=== PATIENT | female | born 1990 | race Caucasian/White ===

== ENCOUNTER 2024-12-03 23:32 | Inpatient (IN) ==
[2024-12-04] MEDS ORDERED: OXYTOCIN 30 UNITS/NSS 30 UNITS/500 ML BAG IV PRN ×2 (00:14→13:32)
[2024-12-04] MEDS ORDERED: LIDOCAINE 1% LOCAL 20 ML VIAL INFIL PRN (00:14)
[2024-12-04] MEDS: LACTATED RINGER'S 1,000 ML IV PRN (00:42)
[2024-12-04 00:44] LABS: Hematocrit (blood only) 35.4 % (37.0-47.0); Hemoglobin 12.1 g/dl (12.0-16.0); Mean Corpuscular Hemoglobin 29.8 pg (25.0-34.0); Mean Corpuscular Hgb Conc 34.2 g/dL (32.0-36.0); Mean Corpuscular Volume 87.2 fL (80.0-100.0); Mean Platelet Volume 10.3 fL (9.4-12.4); Platelet Count 251 K/uL (130-400); RDW Coefficient of Variation 13.2 % (11.5-14.5); RDW Standard Deviation 40.8 fL (36.4-46.3); Red Blood Count 4.06 M/uL (4.20-5.40); White Blood Count 12.64 K/ul (4.8-10.8)
[2024-12-04] MEDS ORDERED: ONDANSETRON INJ 2 MG/ML 2 ML VIAL IV PRN (00:56)
[2024-12-04] MEDS ORDERED: NALBUPHINE HCL INJ 10 MG/ML AMP IV PRN (00:56)
[2024-12-04] MEDS ORDERED: fentaNYL citrate PF 100 MCG/2 ML VIAL EPI PRN (00:56)
[2024-12-04] MEDS ORDERED: ROPIVACAINE 0.5% PF 5 MG/ML 20 ML VIAL EPI PRN (00:56)
[2024-12-04] MEDS ORDERED: ePHEDrine sulfate 50 MG/ML AMP IV PRN (00:56)
[2024-12-04] MEDS ORDERED: NALOXONE HCL 0.4 MG/1 ML VIAL/CARP IV PRN (00:56)
[2024-12-04] MEDS ORDERED: LIDOCAINE 2% MPF LOCAL 5 ML VIAL EPI PRN (00:56)
[2024-12-04] MEDS ORDERED: BUPIVACAINE 0.25% PF 30 ML VIAL EPI PRN (00:56)
[2024-12-04] MEDS ORDERED: SODIUM CHLORIDE 0.9% PF INJ 10 ML VIAL EPI PRN (00:56)
[2024-12-04] MEDS ORDERED: NALOXONE HCL 1 MG in SODIUM CHLORIDE 0.9% 1,000 ML IV PRN (00:56)
--- NOTE | 2024-12-04 01:06 | Anesthesiology Consultation ---
Date of Service December 04, 2024 Assessment & Plan (1) Encounter for pre-operative examination: Chart Review Chart Review: Patient NOT seen in Pre Admission Testing and Acceptable Risk for Labor Epidural Consults Requested none History Height/Weight Height: 5 ft 4.5 in Weight: 92.533 kg Allergies Allergy/AdvReac Type Severity Reaction Status Date / Time amoxicillin Allergy Severe Anaphylaxis Verified 12/03/24 23:54 Medications Home Medications Medication Instructions Recorded Confirmed Last Taken aspirin 81 mg chewable tablet 81 mg PO DAILY 11/23/24 12/02/24 12/02/24 21:00 doxylamine succinate 25 mg tablet 25 mg PO HS 11/23/24 12/02/24 12/02/24 21:00 (Unisom (doxylamine)) 25 mg vits no.124-ferrous fum 1 tab PO DAILY 11/23/24 12/02/24 12/02/24 21:00 27 mg iron-folic acid 800 mcg tablet ( Vitamin) Active Medications Generic Name Dose Route Start Last Admin Trade Name Freq PRN Reason Stop Dose Admin Lactated Ringer's 1,000 mls @ 125 mls/hr 12/04/24 00:14 12/04/24 00:42 Lr IV 12/06/24 00:13 999 mls/hr .Q8H PRN Administration L&D Protocol Protocol Past Medical History Medical History (Updated 12/04/24 @ 01:06 by Malcolm Rene MD) Encounter for pre-operative examination Hip dysplasia Shingles History of chicken pox Exercise / Class Metabolic Activity II 4-5 Yardwork/Stairs/Walk up hill Past Family History Family History Grandfather (Maternal) Breast cancer Aunt Breast cancer Uncle Colorectal cancer Denies family history of Ovarian cancer Past Surgical History Surgical History No history of previous surgery Past Anesthesia History No Hx of Anesthesia Complications and No Family Hx of Anesthesia Complications Social History Smoking Status: Never smoker Do You Dip or Chew Tobacco: No Hx Alcohol Use: No Hx Substance Use: No Physical Exam Vital Signs Last Vital Signs Temp 36.9 C 12/04/24 00:28 Pulse 81 12/04/24 01:26 Resp 18 12/04/24 00:28 BP 129/83 12/04/24 01:26 Pulse Ox 97 12/04/24 01:25 O2 Del Method Room Air 12/04/24 00:28 Testing Laboratory Results 12/04/24 00:22
[2024-12-04] MEDS: LIDOCAINE 2%/EPINEPHRINE 1:200,000 20 ML PF ONE (01:27)
[2024-12-04] MEDS: BUPIVACAINE 0.25% PF 30 ML VIAL ONE (01:27)
[2024-12-04] MEDS: fentaNYL citrate PF 100 MCG/2 ML VIAL ONE (01:27)
[2024-12-04] MEDS: fentANYL 2 MCG/ML BUPIVacaine 0.125%-NSS 100ML BAG ONE (01:33)
[2024-12-04] MEDS: fentaNYL citrate PF 100 MCG/2 ML VIAL EPI STA (03:23)
[2024-12-04] MEDS: LIDOCAINE 2%/EPINEPHRINE 1:200,000 20 ML PF EPI STA (03:23)
[2024-12-04] MEDS: BUPIVACAINE 0.25% PF 30 ML VIAL EPI STA (03:23)
[2024-12-04] MEDS: SODIUM CHLORIDE 0.9% PF INJ 10 ML VIAL EPI STA (03:24)
[2024-12-04] MEDS: SODIUM CHLORIDE 0.9% PF INJ 10 ML VIAL ONE (04:35)
[2024-12-04] MEDS: diphenhydrAMINE 50 MG/ML VIAL IV PRN (05:55)
[2024-12-04] MEDS: ePHEDrine sulfate 50 MG/ML AMP ONE (06:16)
[2024-12-04] MEDS: OXYTOCIN 30 UNITS/NSS 30 UNITS/500 ML BAG IV PRN (06:35)
[2024-12-04] MEDS: fentANYL 2 MCG/ML BUPIVacaine 0.125%-NSS 100ML BAG EPI PRN (10:37)
--- NOTE | 2024-12-04 12:19 | Labor Progress Brief Note ---
Date of Service December 04, 2024 Subjective uncomfortable with contractions. Assessment & Plan (1) Encounter for supervision of normal in multigravida: Plan begin pushing, anticipate , fetus category one. Admission and Anticipated Discharge Date Admission Date: December 04, 2024 Physical Exam Physical Exam: cx--c/c/+1, thin mec toco--q2-3min efm--120s wtih mod varability, accels to 150s Results & Data Vital Signs (Past 12 Hours) Vital Signs Temp Pulse Resp BP Pulse Ox O2 Del Method 12/04/24 12:16 82 88 L 12/04/24 12:15 95 12/04/24 12:15 98 H 12/04/24 12:15 93 H 164/69 H 12/04/24 12:10 87 94 12/04/24 12:08 86 91 12/04/24 12:05 89 94 12/04/24 12:01 91 H 88 L 12/04/24 12:00 81 147/75 H 97 12/04/24 11:55 77 94 12/04/24 11:50 82 95 12/04/24 11:46 93 H 112/68 12/04/24 11:45 90 99 12/04/24 11:40 78 97 12/04/24 11:35 77 96 12/04/24 11:30 86 98 12/04/24 11:29 77 110/57 L 12/04/24 11:25 77 95 12/04/24 11:20 73 96 12/04/24 11:15 96 12/04/24 11:15 73 12/04/24 11:15 74 110/56 L 12/04/24 11:10 86 96 12/04/24 11:05 83 97 12/04/24 11:01 76 133/67 12/04/24 11:00 80 96 12/04/24 10:55 83 97 12/04/24 10:50 85 97 12/04/24 10:46 80 127/73 12/04/24 10:45 36.9 C 16 12/04/24 10:45 81 95 12/04/24 10:40 83 95 12/04/24 10:35 81 96 12/04/24 10:30 96 12/04/24 10:30 81 12/04/24 10:30 85 135/80 12/04/24 10:25 93 H 96 12/04/24 10:20 89 96 12/04/24 10:16 85 134/63 12/04/24 10:15 83 97 12/04/24 10:10 85 97 12/04/24 10:05 91 H 96 12/04/24 10:00 95 12/04/24 10:00 89 06 10:00 91 H 117/73 12/04/24 09:55 90 97 12/04/24 09:50 89 96 12/04/24 09:45 37.1 C 83 20 114/61 95 12/04/24 09:40 93 H 95 12/04/24 09:35 84 96 12/04/24 09:31 88 134/81 12/04/24 09:30 94 H 98 12/04/24 09:25 83 95 12/04/24 09:20 84 96 12/04/24 09:15 94 H 97 12/04/24 09:14 85 112/71 12/04/24 09:10 87 97 12/04/24 09:05 84 96 12/04/24 09:00 86 121/73 96 12/04/24 08:55 96 H 98 12/04/24 08:50 85 97 12/04/24 08:45 85 96 12/04/24 08:44 87 116/69 12/04/24 08:43 37 C 20 12/04/24 08:40 87 96 12/04/24 08:35 96 H 95 12/04/24 08:30 96 12/04/24 08:30 91 H 12/04/24 08:30 89 120/71 12/04/24 08:25 90 97 12/04/24 08:20 84 96 12/04/24 08:15 88 113/64 96 12/04/24 08:10 86 95 12/04/24 08:05 99 H 96 12/04/24 08:04 91 H 92 12/04/24 08:00 96 H 95 12/04/24 07:59 92 H 136/75 12/04/24 07:58 91 H 92 12/04/24 07:55 94 H 95 12/04/24 07:50 87 94 12/04/24 07:45 111 H 96 12/04/24 07:44 93 H 136/77 12/04/24 07:40 101 H 96 12/04/24 07:35 100 H 96 12/04/24 07:30 96 H 95 12/04/24 07:29 100 H 125/80 12/04/24 07:25 90 93 12/04/24 07:20 115 H 97 12/04/24 07:15 95 H 97 12/04/24 07:14 89 146/76 H 12/04/24 07:10 37 C 106 H 16 96 12/04/24 07:05 105 H 96 12/04/24 07:00 90 98 12/04/24 06:59 100 H 130/84 12/04/24 06:55 95 H 95 12/04/24 06:50 98 H 96 12/04/24 06:45 90 95 12/04/24 06:44 94 H 132/82 12/04/24 06:40 101 H 98 12/04/24 06:35 82 97 12/04/24 06:30 36.7 C 91 H 18 97 12/04/24 06:29 86 128/82 12/04/24 06:25 87 97 12/04/24 06:20 88 95 12/04/24 06:15 97 12/04/24 06:15 100 H 12/04/24 06:15 100 H 153/76 H 12/04/24 06:10 92 H 97 12/04/24 06:05 99 H 96 12/04/24 06:00 110 H 18 126/82 98 12/04/24 05:55 89 98 12/04/24 05:50 97 H 97 12/04/24 05:45 90 96 12/04/24 05:44 92 H 126/76 12/04/24 05:40 87 97 12/04/24 05:35 87 97 12/04/24 05:30 18 12/04/24 05:30 18 12/04/24 05:30 96 12/04/24 05:30 87 06 05:30 82 134/77 12/04/24 05:25 89 97 12/04/24 05:20 93 H 96 12/04/24 05:15 85 121/74 96 12/04/24 05:10 78 95 12/04/24 05:05 78 95 12/04/24 05:00 82 16 95 12/04/24 04:59 75 104/59 L 12/04/24 04:55 73 96 12/04/24 04:50 77 95 12/04/24 04:45 78 95 12/04/24 04:44 75 103/60 12/04/24 04:40 76 96 12/04/24 04:38 80 94 12/04/24 04:35 83 95 12/04/24 04:32 16 12/04/24 04:32 16 12/04/24 04:30 36.9 C 90 16 95 12/04/24 04:29 98 H 118/69 12/04/24 04:25 97 12/04/24 04:25 90 06 04:25 88 92 12/04/24 04:20 96 H 96 12/04/24 04:18 90 94 12/04/24 04:15 96 H 96 12/04/24 04:14 94 H 127/72 12/04/24 04:10 82 95 12/04/24 04:05 84 95 12/04/24 04:00 85 95 12/04/24 03:59 81 129/78 12/04/24 03:57 81 94 12/04/24 03:55 87 95 12/04/24 03:51 80 94 12/04/24 03:50 82 95 12/04/24 03:45 95 12/04/24 03:45 84 12/04/24 03:45 80 124/72 12/04/24 03:42 96 H 93 12/04/24 03:40 82 96 12/04/24 03:35 89 96 12/04/24 03:30 88 129/79 98 12/04/24 03:25 85 96 12/04/24 03:20 92 H 96 12/04/24 03:17 85 94 12/04/24 03:15 80 95 12/04/24 03:14 85 116/68 12/04/24 03:10 81 94 12/04/24 03:05 86 96 12/04/24 03:04 98 H 94 12/04/24 03:01 77 124/78 12/04/24 03:00 89 16 96 12/04/24 02:55 73 96 12/04/24 02:50 78 97 12/04/24 02:45 84 96 06/20/25 02:44 76 110/64 12/04/24 02:40 72 96 12/04/24 02:35 80 95 12/04/24 02:30 36.8 C 78 16 96 12/04/24 02:29 71 118/68 12/04/24 02:25 75 96 12/04/24 02:24 77 119/66 12/04/24 02:20 76 96 12/04/24 02:19 78 118/69 12/04/24 02:15 77 96 12/04/24 02:14 75 123/65 12/04/24 02:10 81 96 12/04/24 02:09 96 H 119/69 12/04/24 02:05 81 96 12/04/24 02:04 88 132/87 12/04/24 02:00 100 H 16 97 12/04/24 01:59 87 128/83 12/04/24 01:55 103 H 97 12/04/24 01:54 82 131/78 12/04/24 01:50 98 H 96 12/04/24 01:47 83 133/82 94 12/04/24 01:45 94 H 16 128/80 96 12/04/24 01:43 95 H 124/80 12/04/24 01:41 96 H 129/84 12/04/24 01:40 102 H 96 12/04/24 01:39 103 H 125/79 12/04/24 01:37 93 H 128/81 12/04/24 01:35 90 131/84 96 12/04/24 01:33 85 130/81 12/04/24 01:31 92 H 127/80 12/04/24 01:30 95 H 96 12/04/24 01:29 90 124/80 12/04/24 01:27 80 127/81 12/04/24 01:26 81 129/83 12/04/24 01:25 88 97 12/04/24 01:22 85 93 12/04/24 01:20 92 H 96 12/04/24 01:15 90 97 12/04/24 01:14 95 H 93 12/04/24 01:10 88 141/85 H 98 12/04/24 01:00 16 12/04/24 01:00 16 06/20/25 00:30 18 12/04/24 00:30 18 12/04/24 00:28 36.9 C 18 143/83 H Room Air Coding Level of Care Code None Diagnoses Encounter for supervision of normal in multigravida Z34.80
--- NOTE | 2024-12-04 12:56 | Delivery Summary ---
Vaginal Delivery Summary Date of Service December 04, 2024 Vaginal Delivery Summary and 2nd Degree LAC Pre-operative Diagnosis: at 40 5/7 prom thin mec Post-operative Diagnosis: same Procedure: pitocin augmentation, epidural arom second degree laceration and repair QBL: 442cc Anesthesia: epidural Procedure: Patient presented to labor and delivery with prom. She was admitted and pitocin started. She subsequently got an epidural. Progressed to 8cm and then quickly to 10cm wtih a bulging bag, arom, thin mec. The patient pushed for several contractions to deliver a viable female infant in ruiz position. The anterior shoulder was immediately delivered and the infant was then delivered without difficulty. The baby was vigorous. The nose and mouth were again bulb suctioned and the infant was placed in the maternal abdomen for drying and attention. Cord was clamped and cut at one minute of life. Cord blood and segment obtained. Placenta delivered spontaneous, intact with a three vessel cord. Cervix/sulci/rectum were intact. A second degree perineal laceration was repaired in the normal standard fashion. Hemostasis obtained with dilute pitocin and fundal massage. Apgars were 8/9. Mother and baby doing well at the end of the delivery. [facility] [place] Vaginal Delivery Charge Delivery Type Details: and 2nd Degree LAC
[2024-12-04] MEDS ORDERED: bisacodyL 10 MG SUPP PR PRN (13:32)
[2024-12-04] MEDS ORDERED: HYDROCORTISONE ACETATE 25 MG SUPP PR PRN (13:32)
[2024-12-04] MEDS ORDERED: DIPHTHER/TETAN/PERTUS Vaccine (Tdap, Adol/Adult) 0.5mL IM ONE (13:32)
[2024-12-04] MEDS ORDERED: oxyCODONE/ACETAMINOPHEN 5mg/325mg TAB PO PRN (13:32)
[2024-12-04] MEDS ORDERED: ACETAMINOPHEN 325 MG TAB PO PRN (13:32)
--- NOTE | 2024-12-04 14:35 | Anesthesia Procedure Note ---
Date of Service December 04, 2024 Anesthesia Post Epidural Note Vital Signs Vital Signs: Temp Pulse Resp BP Pulse Ox O2 Del Method 37.2 C 92 H 20 123/68 90 Room Air 12/04/24 12:57 12/04/24 14:29 12/04/24 14:00 12/04/24 14:29 12/04/24 12:48 12/04/24 00:28 Pain Intensity Abdomen: Pain Intensity: 0 Notes Mental Status: alert / awake / arousable Nausea / Vomiting: adequately controlled Pain: adequately controlled Airway Patency, RR, SpO2: stable & adequate BP & HR: stable & adequate Hydration State: stable & adequate Neuraxial Anesthesia: was administered and sensory block is resolving Anesthetic Complications: no major complications apparent and Pt Satisfied with anesthetic care Epidural: Removed without complications and With tip intact
[2024-12-04] MEDS: BENZOCAINE 20% SPRY 85 APPLN/85 GM CAN EXT PRN (19:46)
[2024-12-04] MEDS: IBUPROFEN 600 MG TAB PO PRN (20:25)
[2024-12-04] MEDS: DOCUSATE SODIUM 100 MG CAP PO SCH (20:25)
[2024-12-04 23:53] VITALS: RESP 16
[2024-12-05 03:39] VITALS: O2SAT 100
--- NOTE | 2024-12-05 06:02 | Obstetrical Progress Note ---
Date of Service December 05, 2024 Assessment & Plan (1) Encounter for care and examination after delivery: (2) History of induced hypertension: Plan Pt is 34yo post- day 1 s/p at 40w3d. complicated by GHTN, taking daily aspirin. Feeling well and ready to D to home - Encourage ambulation - Encourage breast feeding - Pain control with tylenol and ibuprofen - Anticipate DC today Admission and Anticipated Discharge Date Admission Date: December 04, 2024 Supervising Physician Co-Signing Physician Notes Resident Physician Supervision Note: I interviewed and examined the patient. Discussed with Dr. Smith and agree with findings and plan as documented in the note. Any exceptions or clarifications are listed here: Doing well. Desires d/c. Instructions given. BPs have been good here. hx of ghtn but no issues this . Documented By: Roslyn Malcolm MD, FACOG Subjective Pt is 34yo post- day 1 s/p at 40w3d. complicated by GHTN, taking daily aspirin Ambulation:In room Voiding:voiding normally Passing gas: yes BM: no Diet tolerance:regular diet Lochia:bloody, 1 large clot overnight Feeding type: breast Current pain level: 1-3 /10 improved with ibuprofen Resting comfortably this morning in NAD. Denies SANTANA, CP, SOB, N/V/D, LE pain/swelling. Review of Systems Review of Systems: As per HPI Physical Exam Constitutional: WD/WN, vitals as above Respiratory: normal respiratory effort, lungs clear to auscultation Cardiovascular: RRR, no murmur, no edema Gastrointestinal (Abdomen): normal bowel sounds, soft, nontender, no hepatosplenomegaly Uterine fundus firm and at level of umbilicus Neurologic: PERRL, EOMI, accommodation nl, no face palsy, no dysarthria Moving all 4 extremities on command Psychiatric: A+Ox3, euthymic affect Results & Data Vital Signs (Past 12 Hours) Vital Signs Temp Pulse Resp BP Pulse Ox O2 Del Method 12/05/24 03:35 36.5 C 77 16 107/68 100 Room Air 12/04/24 23:30 36.4 C L 80 16 128/78 98 Room Air 12/04/24 20:25 36.9 C 87 18 120/81 98 Room Air Resident Activity Tracking Resident Involvement: Resident Care Provided Care Provided: Adult Hospital Medicine
[2024-12-05 07:16] LABS: Hematocrit (blood only) 31.9 % (37.0-47.0); Hemoglobin 10.8 g/dl (12.0-16.0)
[2024-12-05 07:49] VITALS: PULSE 74; TEMP 97.9
[2024-12-05] MEDS: PRENATAL VITAMIN 1 TAB PO SCH (07:53)
[2024-12-05 12:42] VITALS: BP 139/91
[2024-12-05] MEDS ORDERED: bisacodyL 5 MG TABEC PO SCH (20:00)
== END 2024-12-05 15:35 | disposition home or self-care (01) | DRG 807 ==
LOC: OPB 23:32 → 4S1 23:53 → 4E2 12-04 15:43